=== PATIENT | female | born 1940 | race Caucasian/White ===

== ENCOUNTER 2017-03-19 12:18 | Emergency (ER) | payer MEDICARE, BC ==
--- NOTE | 2017-03-19 14:45 | EDM.PDOC ---
ED HPI GENERAL MEDICAL PROBLEM - General Chief Complaint: Respiratory Problem Stated Complaint: TROUBLE BREATHING, FLUID IN LEGS & LUNGS Time Seen by Provider: 03/19/17 14:33 Source of Information: Reports: Patient, Family History Limitations: Reports: No Limitations - History of Present Illness INITIAL COMMENTS - FREE TEXT/NARRATIVE: Pt to ER. Family brings her in with increased shortness of breath. Would like her to be on a nebulizer treatment. Has seen a steam blocker in the past. Sees laborer pole crew. Has a pending echocardiogram tomorrow. Coughs routinely. Family did put compression hose on her yesterday. Pt feels like she has a wet cough. Onset: Gradual Duration: Recurring Improves with: Reports: Rest Worsens with: Reports: Breathing Associated Symptoms: Reports: Cough - Related Data Allergies Allergy/AdvReac Type Severity Reaction Status Date / Time amoxicillin [Amoxicillin] Allergy Rash Verified 03/19/17 14:03 tetanus toxoid, adsorbed Allergy Swelling Verified 03/19/17 14:03 bandaids Allergy Rash Uncoded 03/19/17 14:03 Home Meds: Home Meds Budesonide/Formoterol [Symbicort 160-4.5 MCG] 2 puff INH DAILY 03/11/16 [History ] Digoxin [Lanoxin] 125 mcg PO DAILY 03/11/16 [History] Famotidine [Pepcid] 20 mg PO BID 03/11/16 [History] Furosemide [Lasix] 60 mg PO DAILY 03/11/16 [History] Glucosam HCl/Chondro Rico A/C/Mn [Glucosamine-Chondroitin Cap] 1 tab PO DAILY [History] Isosorbide Mononitrate [Imdur] 60 mg PO DAILY 03/11/16 [History] Levalbuterol Tartrate [Xopenex HFA] 2 puff INH Q4H PRN 03/11/16 [History] Loratadine [Claritin] 10 mg PO DAILY PRN 03/11/16 [History] Niacin 500 mg PO BID 03/11/16 [History] Potassium Chloride [Klor-Con M20] 20 meq PO DAILY 03/11/16 [History] atorvaSTATin [Lipitor] 10 mg PO BEDTIME 03/11/16 [History] metFORMIN [Glucophage] 1,000 mg PO BID 03/11/16 [History] Aspirin 81 mg PO DAILY 04/17/16 [History] Clopidogrel [Plavix] 75 mg PO DAILY 03/19/17 [History] NIFEdipine [Procardia Xl] 60 mg PO BID 03/19/17 [History] Nebivolol [Bystolic] 20 mg PO BID 03/19/17 [History] Warfarin [Coumadin] 7.5 mg PO DAILY 03/19/17 [History] Past Medical History HEENT History: Reports: Cataract Cardiovascular History: Reports: Afib, High Cholesterol, [place], Pacemaker, Stents Other Cardiovascular History: lower extremity edema, PAD Respiratory History: Reports: Asthma, COPD, Other (See Below) Other Respiratory History: home O2 Other Gastrointestinal History: "saggy colon" Genitourinary History: Reports: Other (See Below) Other Genitourinary History: "vaginal infection", uterine cancer 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) Other OB/BYN History: uterine cancer Musculoskeletal History: Reports: Fracture Neurological History: Reports: Neuropathy, Diabetic Endocrine/Metabolic History: Reports: Diabetes, Type II, Obesity/BMI 30+ Other Endocrine/Metabolic History: elevated PTHrP and hypercalcemia Oncologic (Cancer) History: Reports: Lung, Uterine Other Oncologic History: skin Dermatologic History: Reports: Other (See Below) Other Dermatologic History: skin caner - Infectious Disease History Infectious Disease History: Reports: Chicken Pox - Past Surgical History HEENT Surgical History: Reports: Cataract Surgery Cardiovascular Surgical History: Reports: Carotid Endarterectomy, Coronary Artery Stent, Pacer Respiratory Surgical History: Reports: Thoracotomy, Other (See Below) Other Respiratory Surgeries/Procedures: lobectomy for CA GI Surgical History: Reports: None Female Surgical History: Reports: Hysterectomy Musculoskeletal Surgical History: Reports: None Social & Family History - Family History Cardiac: Reports: CAD - Tobacco Use Smoking Status *Q: Never Smoker Second Hand Smoke Exposure: No - Recreational Drug Use Recreational Drug Use: No ED ROS GENERAL - Review of Systems Review Of Systems: See Below Constitutional: Reports: No Symptoms HEENT: Reports: No Symptoms Respiratory: Reports: Shortness of Breath, Cough Cardiovascular: Reports: No Symptoms Musculoskeletal: Reports: No Symptoms Skin: Reports: No Symptoms Neurological: Reports: No Symptoms ED EXAM, GENERAL - Physical Exam Exam: See Below Exam Limited By: No Limitations General Appearance: Alert, WD/WN, No Apparent Distress Ears: Normal External Exam, Normal Canal, Hearing Grossly Normal, Normal TMs Nose: Normal Inspection, Normal Mucosa, No Blood Throat/Mouth: Normal Inspection, Normal Lips, Normal Teeth, Normal Gums, Normal Oropharynx, Normal Voice, No Airway Compromise Head: Atraumatic, Normocephalic Neck: Normal Inspection, Supple, Non-Tender, Full Range of Motion Respiratory/Chest: Other (diminished breath sounds with wet sounds in upper airways) Cardiovascular: Normal Peripheral Pulses, Regular Rate, Rhythm, No Edema, No Gallop, No JVD, No Murmur, No Rub GI/Abdominal: Normal Bowel Sounds, Soft, Non-Tender, No Organomegaly, No Distention, No Abnormal Bruit, No Mass Extremities: Normal Inspection, Normal Range of Motion, Non-Tender, No Pedal Edema, Normal Capillary Refill, Other (stockings noted to bilateral lower legs) Neurological: Alert, Oriented, CN II-XII Intact, Normal Cognition, Normal Gait, Normal Reflexes, No Motor/Sensory Deficits Psychiatric: Normal Affect, Normal Mood Skin Exam: Warm, Dry, Intact, Normal Color, No Rash Course - Vital Signs Last Recorded V/S: Last Vital Signs Temp 96.8 F 03/19/17 14:12 Pulse 68 03/19/17 14:12 Resp 16 03/19/17 15:12 BP 148/69 H 03/19/17 15:12 Pulse Ox 90 L 03/19/17 15:12 - Orders/Labs/Meds Meds: Medications Discontinued Medications Generic Name Dose Route Start Last Admin Trade Name Freq PRN Reason Stop Dose Admin Arformoterol Tartrate 15 mcg 03/19/17 15:04 03/19/17 15:11 Brovana NEB 03/19/17 15:05 15 mcg ONETIME ONE Administration Departure - Departure Time of Disposition: 14:59 Disposition: Home, Self-Care 01 Condition: good Clinical Impression: COPD (chronic obstructive pulmonary disease) Qualifiers: COPD type: chronic bronchitis Chronic bronchitis type: simple Qualified Code(s) : J41.0 - Simple chronic bronchitis - Discharge Information Instructions: Chronic Obstructive Pulmonary Disease Exacerbation, [id number] Referrals: Kameron Olivarez MD [Primary Care Provider] - Forms: ED Department Discharge Additional Instructions: Reviewed med list at length with pt and family. Dose of Brovana via neb given in ER. Pt tolerated well. Rx for Brovana 15mcg BID given to replace Xopenex inhaler. May still use Xopenex as a rescue inhaler. Rx given for nebulizer machine and supplies as well. Encouraged to discuss compression stockings with her laborer pole crew tomorrow. To wear during the day and remove at night. Leg elevation stressed. Encouraged to discuss Plavix plus Coumadin with her laborer pole crew due to risk of being on multiple blood thinners. - Problem List & Annotations (1) COPD (chronic obstructive pulmonary disease) SNOMED Code(s): 87791580 Code(s): J44.9 - CHRONIC OBSTRUCTIVE PULMONARY DISEASE, UNSPECIFIED Status : Acute Priority: Medium Current Visit: Yes Qualifiers: COPD type: chronic bronchitis Chronic bronchitis type: simple Qualified Code(s): J41.0 - Simple chronic bronchitis
[2017-03-19] MEDS ORDERED: Arformoterol 15 MCG/2 ML Neb Soln NEB ONE (15:04)
[2017-03-19 15:12] VITALS: BP 148/69
== END 2017-03-19 15:43 | disposition home or self-care (01) ==
LOC: JP.ED 12:18
DX: J41.0 Simple chronic bronchitis (principal); I48.91 Unspecified atrial fibrillation; E78.00 Pure hypercholesterolemia, unspecified; I25.2 Old myocardial infarction; J45.909 Unspecified asthma, uncomplicated; E66.9 Obesity, unspecified; Z88.1 Allergy status to other antibiotic agents; Z88.8 Allergy status to other drugs, medicaments and biological substances; Z79.899 Other long term (current) drug therapy; Z79.84 Long term (current) use of oral hypoglycemic drugs; Z79.82 Long term (current) use of aspirin; Z95.5 Presence of coronary angioplasty implant and graft; Z79.01 Long term (current) use of anticoagulants; Z68.34 Body mass index [BMI] 34.0-34.9, adult; Z98.49 Cataract extraction status, unspecified eye; Z90.710 Acquired absence of both cervix and uterus; Z98.890 Other specified postprocedural states
CPT/HCPCS: 99283; 99285; J7605

== ENCOUNTER 2017-09-09 10:17 | Emergency (ER) | payer MEDICARE, BC ==
--- NOTE | 2017-09-09 11:14 | EDM.PDOC ---
ED HPI GENERAL MEDICAL PROBLEM - General Chief Complaint: ENT Problem Stated Complaint: BLOODY NOSE Time Seen by Provider: 09/09/17 11:03 Source of Information: Reports: Patient, Family, RN Notes Reviewed History Limitations: Reports: No Limitations - History of Present Illness INITIAL COMMENTS - FREE TEXT/NARRATIVE: 76-year-old female presents emergency department day complaint of nosebleed, she has had nosebleeds in the past does use oxygen and is on anticoagulation therapy. This particular event started this morning and she's been unable to get it stopped Nare Pain Score (Numeric/FACES): 4 - Related Data Allergies Allergy/AdvReac Type Severity Reaction Status Date / Time amoxicillin [Amoxicillin] Allergy Rash Verified 09/09/17 10:21 tetanus toxoid, adsorbed Allergy Swelling Verified 09/09/17 10:21 bandaids Allergy Rash Uncoded 09/09/17 10:21 Home Meds: Home Meds Budesonide/Formoterol [Symbicort 160-4.5 MCG] 2 puff INH DAILY 03/11/16 [History ] Digoxin [Lanoxin] 125 mcg PO DAILY 03/11/16 [History] Famotidine [Pepcid] 20 mg PO BID 03/11/16 [History] Furosemide [Lasix] 40 mg PO DAILY 03/11/16 [History] Glucosam HCl/Chondro Rico A/C/Mn [Glucosamine-Chondroitin Cap] 1 tab PO DAILY [History] Isosorbide Mononitrate [Imdur] 60 mg PO DAILY 03/11/16 [History] Levalbuterol Tartrate [Xopenex HFA] 2 puff INH Q4H PRN 03/11/16 [History] Loratadine [Claritin] 10 mg PO DAILY PRN 03/11/16 [History] atorvaSTATin [Lipitor] 10 mg PO BEDTIME 03/11/16 [History] metFORMIN [Glucophage] 1,000 mg PO BID 03/11/16 [History] Clopidogrel [Plavix] 75 mg PO DAILY 03/19/17 [History] Nebivolol [Bystolic] 20 mg PO BID 03/19/17 [History] Warfarin [Coumadin] 7.5 mg PO DAILY 03/19/17 [History] Iron,Carbonyl/Vit C/Vit B12/Fa [Iron 100 Plus Tablet] 1 tab PO BID 09/09/17 [ History] Spironolactone [Aldactone] 25 mg PO TID 09/09/17 [History] atorvaSTATin [Lipitor] 80 mg PO BEDTIME 09/09/17 [History] Past Medical History HEENT History: Reports: Cataract Cardiovascular History: Reports: Afib, CAD, High Cholesterol, [place], Pacemaker, Stents Other Cardiovascular History: lower extremity edema, PAD Respiratory History: Reports: Asthma, COPD, Other (See Below) Other Respiratory History: home O2 Other Gastrointestinal History: "saggy colon" Genitourinary History: Reports: Other (See Below) Other Genitourinary History: "vaginal infection", 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 (See Below) Other OB/BYN History: uterine cancer Musculoskeletal History: Reports: Fracture Neurological History: Reports: Neuropathy, Diabetic Endocrine/Metabolic History: Reports: Diabetes, Type II, Obesity/BMI 30+ Other Endocrine/Metabolic History: elevated PTHrP and hypercalcemia Hematologic History: Reports: Anemia, Blood Transfusion(s) Oncologic (Cancer) History: Reports: Lung, Uterine Other Oncologic History: skin Dermatologic History: Reports: Other (See Below) Other Dermatologic History: skin caner - Infectious Disease History Infectious Disease History: Reports: Chicken Pox - Past Surgical History HEENT Surgical History: Reports: Cataract Surgery Cardiovascular Surgical History: Reports: Carotid Endarterectomy, Coronary Artery Stent, Pacer Respiratory Surgical History: Reports: Thoracotomy, Other (See Below) Other Respiratory Surgeries/Procedures: lobectomy for CA GI Surgical History: Reports: None Female Surgical History: Reports: Hysterectomy Musculoskeletal Surgical History: Reports: None Social & Family History - Family History Cardiac: Reports: CAD - Tobacco Use Smoking Status *Q: Former Smoker Years of Tobacco use: 30 Packs/Tins Daily: 0.5 Used Tobacco, but Quit: Yes Month Tobacco Last Used: March Second Hand Smoke Exposure: No - Caffeine Use Caffeine Use: Reports: Coffee, Energy Drinks, Tea - Alcohol Use Days Per Week of Alcohol Use: 0 - Recreational Drug Use Recreational Drug Use: No ED ROS ENT - Review of Systems Review Of Systems: See Below Constitutional: Reports: No Symptoms HEENT: Reports: Nosebleed Respiratory: Reports: No Symptoms Cardiovascular: Reports: No Symptoms GI/Abdominal: Reports: No Symptoms : Reports: No Symptoms ED EXAM, ENT - Physical Exam Exam: See Below Text/Narrative:: Mouth because is moist and pink she does have active bleeding draining in the back of her throat examination of the nose I cannot detect any anterior bleed Exam Limited By: No Limitations General Appearance: Alert, Mild Distress Nose: Active Bleeding, Dried Blood Head: Atraumatic, Normocephalic Neck: Normal Inspection, Supple, Non-Tender, Full Range of Motion Respiratory/Chest: No Respiratory Distress ED ENT PROCEDURES - Epistaxis Procedure Indication: Epistaxis Recent anticoagulants/antiplatlets: Yes Uncontrolled HTN: No Recent septal/nasal surgery: No Site of bleeding: Right Nare Clearing of clots: Patient Blew Nose Anterior Packing: Inflatable Nasal Tampon Posterior packing: Long Nasal Tampon Local Anesthetic Volume: Other (6) Complications: No Course - Vital Signs Last Recorded V/S: Last Vital Signs Temp 95.5 F 09/09/17 11:05 Pulse 63 09/09/17 11:05 Resp 24 H 09/09/17 11:05 BP 149/76 H 09/09/17 11:05 Pulse Ox 96 09/09/17 11:05 - Orders/Labs/Meds Labs: Laboratory Tests 09/09/17 09/09/17 Range/Units 11:20 11:20 WBC 11.1 H (4.5-11.0) K/uL RBC 4.53 (3.30-5.50) M/uL Hgb 13.0 (12.0-15.0) g/dL Hct 42.1 (36.0-48.0) % MCV 93 (80-98) fL MCH 29 (27-31) pg MCHC 31 L (32-36) % Plt Count 196 (150-400) K/uL Neut % (Auto) 75 H (36-66) % Lymph % (Auto) 12 L (24-44) % [place] % (Auto) 10 H (2-6) % Eos % (Auto) 3 (2-4) % Baso % (Auto) 1 (0-1) % PT 30.0 H (9.5-12.0) sec INR 2.69 H (0.80-1.20) Departure - Departure Time of Disposition: 12:49 Disposition: Home, Self-Care 01 Condition: Good Clinical Impression: Epistaxis - Discharge Information Referrals: Kameron Olivarez MD [Primary Care Provider] - Forms: ED Department Discharge Additional Instructions: Keep the nasal packing for the next 24 hours and then withdraw air as needed and for comfort follow-up with primary care on Monday of next week, call return to the emergency department worsening of symptoms - Assessment/Plan Plan: Assessment Acuity = acute Site and laterality = left nares epitaxis Etiology = combination of oxygen therapy and anticoagulation Manifestations = none Location of injury = Home Lab values = CBC within normal limits, INR 2.6 Plan Bleeding was controlled with 9 mL in the nasal tampon plan is discharge home she is going to keep the same pressure on for the next 24 hours and then slowly withdraw the air depending on bleeding follow-up primary care on Monday for further reevaluation Patient was in agreement with the plan all questions were answered, they were instructed to return to the emergency department or call for worsening symptoms. This note was dictated using [employer] voice recognition software please call with any questions.
[2017-09-09 11:20] VITALS: BP 149/76
== END 2017-09-09 13:00 | disposition home or self-care (01) ==
LOC: JP.ED 10:17
DX: R04.0 Epistaxis (principal); E78.00 Pure hypercholesterolemia, unspecified; E11.9 Type 2 diabetes mellitus without complications; E66.9 Obesity, unspecified; Z79.899 Other long term (current) drug therapy; Z88.1 Allergy status to other antibiotic agents
CPT/HCPCS: 30901; 30903; 36415; 85025; 85610; 99283-25; 99284-25